=== PATIENT | female | born 1995 | race Caucasian/White ===

== ENCOUNTER 2017-06-23 00:35 | Emergency (ER) | payer BC ==
[~2017-06-23] VITALS: Ht 172.7 cm; Wt 113.6 kg
[2017-06-23 00:38] VITALS: BP 130/73; TEMP 97.5
[2017-06-23] MEDS ORDERED: KARIVA 28 DAY1 EACH PO (00:44)
[2017-06-23 02:25] VITALS: PULSE 84
== END 2017-06-23 02:27 | disposition home or self-care (01) ==
LOC: COL.ER 00:35
DX: S00.93XA Contusion of unspecified part of head, initial encounter (principal); S39.012A Strain of muscle, fascia and tendon of lower back, initial encounter; S96.911A Strain of unspecified muscle and tendon at ankle and foot level, right foot, initial encounter; W10.9XXA Fall (on) (from) unspecified stairs and steps, initial encounter; Y92.009 Unspecified place in unspecified non-institutional (private) residence as the place of occurrence of the external cause

== ENCOUNTER 2018-05-12 03:31 | Emergency (ER) | payer BC ==
[~2018-05-12] VITALS: Ht 172.7 cm; Wt 97.7 kg
[~2018-05-12 03:31] MED LIST: KARIVA 28 DAY1 EACH PO
[2018-05-12 03:34] VITALS: TEMP 98.5
[2018-05-12 06:30] VITALS: BP 131/85; PULSE 74
== END 2018-05-12 06:27 | disposition home or self-care (01) ==
LOC: COL.ER 03:31
DX: R06.02 Shortness of breath (principal); G43.909 Migraine, unspecified, not intractable, without status migrainosus; Z88.2 Allergy status to sulfonamides; Z90.89 Acquired absence of other organs